=== PATIENT | male | born 1965 | race Two or more races ===

== ENCOUNTER 2017-11-17 07:51 | Day surgery (SDC) | payer MEDICAID ==
[2017-11-17] MEDS ORDERED: LIDOCAINE 2% MDV (20MG/ML) 20ML VIAL IV ONE (07:52)
[2017-11-17] MEDS ORDERED: PROPOFOL 10 MG/ML VIAL IV ONE (07:52)
--- NOTE | 2017-11-22 16:10 | Operative Note ---
DATE OF SURGERY: OPERATION: FLEXIBLE SIGMOIDOSCOPY. PREOPERATIVE DIAGNOSIS: Anorectal mass. POSTOPERATIVE DIAGNOSIS: External hemorrhoid. PROCEDURE: After informed consent was obtained from the patient, he was placed in the left lateral decubitus position in the endoscopy suite, sedated and monitored by the department of anesthesia. Digital rectal exam revealed an anorectal nodule which was somewhat firm. This appeared to emanate from the area of the dentate line. No other rectal abnormality was palpable. A well-lubricated HNP706 colonoscope was inserted into the rectum and advanced into the distal sigmoid colon. There was the onset of formed stool, and as a result, the endoscope was then retracted through the distal sigmoid colon and rectum. No mucosal abnormalities were noted. J-turn views of the anorectum revealed mildly enlarged internal hemorrhoids but no masses were seen. Photographs were taken. The endoscope was then straightened and retracted through the anal canal which revealed what appeared to be an external hemorrhoid. RECOMMENDATIONS: The patient can use topical therapy as an initial approach with high-fiber diet and sitz baths. If he would like further attention, I would be happy to refer him for a surgical evaluation. As always, thank you for allowing me to participate in the healthcare of your patients. CC: MD BRANDI Hanna
== END 2017-11-17 09:36 | disposition home or self-care (01) ==
LOC: HOP 07:51
PROVIDERS: ATTEND Internal Medicine Gastroenterology
DX: R22.9 Localized swelling, mass and lump, unspecified (principal); K64.4 Residual hemorrhoidal skin tags; E11.9 Type 2 diabetes mellitus without complications; I10 Essential (primary) hypertension; E78.00 Pure hypercholesterolemia, unspecified